=== PATIENT | male | born 1995 | race Two or more races ===

== ENCOUNTER 2021-10-15 11:20 | Emergency (ER) | payer OTHER ==
[~2021-10-15] VITALS: Ht 180.3 cm; Wt 90.7 kg
[2021-10-15 13:55] VITALS: BP 128/84
== END 2021-10-15 13:59 | disposition home or self-care (01) ==
LOC: ER 11:20 → EDBD 11:20 → ER 13:59
DX: S90.512A Abrasion, left ankle, initial encounter (principal); S80.212A Abrasion, left knee, initial encounter; S40.212A Abrasion of left shoulder, initial encounter; W18.39XA Other fall on same level, initial encounter; Y93.89 Activity, other specified; Y92.89 Other specified places as the place of occurrence of the external cause; Y99.8 Other external cause status
CPT/HCPCS: 73030; 73502; 73562; 73610